=== PATIENT | male | born 1950 ===

== ENCOUNTER 2021-10-02 12:45 | Outpatient (CLI) | payer MEDICARE, BC, SELFPAY | END 2021-10-02 12:46 | disposition home or self-care (01) | LOC: LAB 12:48 | PROVIDERS: PCP Family Medicine; Visit Provider Orthopaedic Surgery | DX: Z01.818 Encounter for other preprocedural examination (principal) | CPT/HCPCS: 36415; 86850; 86900; 86901 ==

== ENCOUNTER 2021-10-05 15:34 | Inpatient (IN) | payer MEDICARE, BC, SELFPAY ==
[2021-10-04] VITALS (25 sets, daily range): BP systolic 90–148; BP diastolic 50–94; PULSE 53–104; RESP 14–18; TEMP 35.6–36.7; O2SAT 90–99; BMI 30.6
[2021-10-04] MEDS: MIDAZOLAM HCL 1 MG/ML inj IVP (10:38)
[2021-10-04] MEDS: ACETAMINOPHEN 500 MG TABLET 1000 MG PO ×3 (10:38→23:47)
[2021-10-04] MEDS: fentaNYL 100 MCG/2 ML inj IVP (10:38)
[2021-10-04] MEDS: OXYCODONE (CR) 10 MG TAB.ER.12H PO (10:38)
[2021-10-04] MEDS: CELECOXIB 200 MG CAPSULE PO ×2 (10:38→21:12)
--- NOTE | 2021-10-04 10:40 | CRLHL7_ITS ---
For Patients: As a result of the Cures Act, medical imaging exams and procedure reports are released immediately into your electronic medical record. You may view this report before your referring provider. If you have questions, please contact your health care provider. Indication: Hip replacement surgery Technique: AP hip fluoroscopic images. Fluoroscopy time 124.1 seconds. Findings/Impression: Hardware from a left total hip arthroplasty is in satisfactory position. Dictated by Gutierrez Bryant MD @ 10/04/2021 3:13:18 PM (Electronically Signed)
--- NOTE | 2021-10-04 10:40 | CRLHL7_ITS ---
For Patients: As a result of the Cures Act, medical imaging exams and procedure reports are released immediately into your electronic medical record. You may view this report before your referring provider. If you have questions, please contact your health care provider. Indication: Hip replacement surgery Technique: AP hip fluoroscopic images. Fluoroscopy time 124.1 seconds. Findings/Impression: Hardware from a right total hip arthroplasty is in satisfactory position. Dictated by Gutierrez Bryant MD @ 10/04/2021 3:12:41 PM (Electronically Signed)
[2021-10-04] MEDS: LACTATED RINGERS 1000 ML 1,000 ML 100 ML IV ×3 (11:00→15:20)
--- NOTE | 2021-10-04 11:30 | SUR.PREOP ---
TIME?OUT:?1120 PT/RN/MDA?VERIFICATION?OF?SURGICAL?SITE,?PROCEDURE,?AND?CONSENT OBTAINED?PRIOR?TO?INVASIVE?PROCEDURE.
[2021-10-04] MEDS: CEFAZOLIN 2 GM INJ IVP (12:00)
--- NOTE | 2021-10-04 12:08 | P.NB_ITS ---
Nerve Block Nerve Block Time Seen by Provider: 11:20 Date Seen: 10/04/21 Type of block requested by surgeon for post-operative analgesia: DECLAN/LFCN Side: left Time out performed: Yes Verification of patient name: Yes Verification of date of : Yes Site marking: site marked Name of person performing procedure: Sang Assistants, if any: Lienmbrogsugar Continuous monitoring Was continuous monitoring of O2 sat, B/P, compliance monitor, recorded every 15 minutes?: Yes Procedure Checklist: sterile prep, needles and gloves Ultrasound guided. Images saved: Yes Medications given in 5ml increments after negative aspiration: Marcaine %: 0.25 mL: 20 Needle gauge: 20 and Exparel mL: 10 Needle gauge: 20 Patient tolerated procedure well: Yes Additional comments: Needle noted adjacent to nerve Bilateral block. See other note for opposite side Block Charges Block Charge (with Pro Fee): Other Periph Nerve Block Use of Ultrasound Machine for Block: Yes- US Guidance/pain block
--- NOTE | 2021-10-04 12:10 | W.PM.NB ---
Nerve Block Nerve Block Time Seen by Provider: 11:20 Date Seen: 10/04/21 Type of block requested by surgeon for post-operative analgesia: DECLAN/LFCN Side: right Time out performed: Yes Verification of patient name: Yes Verification of date of : Yes Site marking: site marked Name of person performing procedure: Sang Assistants, if any: Lienmbrogsugar Continuous monitoring Was continuous monitoring of O2 sat, B/P, convenience recycle center tech, recorded every 15 minutes?: Yes Procedure Checklist: sterile prep, needles and gloves Ultrasound guided. Images saved: Yes Medications given in 5ml increments after negative aspiration: Marcaine %: 0.25 mL: 20 Needle gauge: 20 and Exparel Decadron (mg): 10 Precedex (mcg): 20 Patient tolerated procedure well: Yes Additional comments: Needle noted adjacent to nerve Bilateral block. See other note for opposite side Block Charges Block Charge (with Pro Fee): Other Periph Nerve Block Use of Ultrasound Machine for Block: Yes- US Guidance/pain block
--- NOTE | 2021-10-04 12:36 | SUR.OPER ---
PATIENT QUESTIONS ANSWERED SATISFACTORILY PREOPERATIVELY.? PATIENT BROUGHT TO OR #3 PER CART.? Patient positioned supine on OR #3 bed.?The perioperative?team supported arms bilaterally on arm boards.? Final approval of positioning by surgeon.?
--- NOTE | 2021-10-04 14:55 | SUR.OPER ---
RIGHT HIP IRRIGATED WITH 3000cc BAG NACL WITH PULSE RUBBER WASHER AT 13:20 LEFT HIP IRRIGATED WITH 3000cc BAG NACL WITH PULSE RUBBER WASHER AT 14:52
--- NOTE | 2021-10-04 15:01 | CRLHL7_ITS ---
For Patients: As a result of the Cures Act, medical imaging exams and procedure reports are released immediately into your electronic medical record. You may view this report before your referring provider. If you have questions, please contact your health care provider. Indication: Postop PAULA. Technique: Pelvis and right hip 2 views. Comparison: Same day intraoperative fluoroscopy. Findings: Postoperative changes of bilateral total hip arthroplasty with associated soft tissue gas. Hardware appears intact and well positioned. No acute fracture identified. Vascular calcifications. Surgical clips right groin. Impression: Intact right PAULA with expected immediate postoperative findings. Dictated by Abigail Valladares MD @ 10/04/2021 5:37:26 PM (Electronically Signed)
--- NOTE | 2021-10-04 15:01 | CRLHL7_ITS ---
For Patients: As a result of the Cures Act, medical imaging exams and procedure reports are released immediately into your electronic medical record. You may view this report before your referring provider. If you have questions, please contact your health care provider. Indication: Postop PAULA. Technique: Pelvis and left hip 2 views. Comparison: Same day intraoperative fluoroscopy. Findings: Postoperative changes of bilateral total hip arthroplasty with associated soft tissue gas. Hardware appears intact and well positioned. No acute fracture identified. Vascular calcifications. Surgical clips right groin. Impression: Intact left PAULA with expected immediate postoperative findings. Dictated by Abigail Valladares MD @ 10/04/2021 5:39:38 PM (Electronically Signed)
--- NOTE | 2021-10-04 15:06 | P.ORPRC_ITS ---
Procedure Note Date of procedure: 10/04/21 Procedure: SURGEON: Aaron Pierre MD CIRCLE SHEAR OPERATOR: Meme Murillo PA-C, ADAN Jaramillo PREOPERATIVE DIAGNOSIS: Bilateral hip osteoarthritis POSTOPERATIVE DIAGNOSIS: Bilateral hip osteoarthritis NAME OF OPERATION: Bilateral total hip arthroplasty IMPLANTS: Both hips 1. [employer] [place] # 54 sector ingrowth cup 2. 36 x 54 +4 neutral polyethylene 3. Actis # 7 standard collared ingrowth stem 4. 36 + 5 ceramic femoral head ANESTHESIA: General ESTIMATED BLOOD LOSS: 1100 cc COMPLICATIONS: None SPECIMENS: None DRAINS: None PREOPERATIVE ANTIBIOTICS: Ancef 2 grams INDICATIONS: The patient is a 71-year-old with a longstanding history of severe , unrelenting bilateral hip pain secondary to end-stage bilateral hip osteoarthritis. Despite appropriate nonoperative management, including activity modification, use of an assist device, anti-inflammatories, [id number] pain medication, physical therapy and injections, they continue to have pain and disability. Operative intervention was offered. The risks, benefits and expected outcomes were discussed in detail. These included but were not limited to: Infection, bleeding, injury to blood vessel or nerve, venous thromboembolism. All questions were answered to their satisfaction. Use of an assistant women's basketball coach was necessary throughout the case for patient positioning and safety, soft tissue retraction and closure. A modifier 22 is appropriate for this case. Given the severity of the arthritis, osteophytic spurring and tight soft tissues these factors extended the duration of the case to more than double what is typically required to complete a hip replacement PROCEDURE: The patient was placed supine on the [place] table. General anesthesia was administered. The assistant women's basketball coach made sure the patient was properly positioned. The right hip was prepped and draped in the usual sterile fashion. The image intensifier was brought in for a perfect AP pelvis and a perfect double tear drop AP view of each hip which were used for intraoperative templating with our fluoroscopic guide. An oblique incision was made 3 cm distal and 3 cm lateral to the anterior superior iliac spine. The assistant women's basketball coach retracted the soft tissues to protect them. Subcutaneous dissection was taken with electrocautery to the superficial fascia. The fascia was divided in line with the incision. Blunt dissection was carried medially to the tensor fascia nicho and sartorius interval. Deep dissection was carried with electrocautery. The circumflex vessels were cauterized and divided. The capsule was exposed and then divided in a T- fashion, tagged with #1 Ethibond sutures. Retractors were placed in the joint, held by the assistant women's basketball coach. The corkscrew was placed in the femoral head. The neck cut was made in the subcapital region. We made a second neck cut more distal. The napkin ring of bone was removed. The femoral head was removed intact. Acetabular retractors were placed, held by the assistant women's basketball coach. The labrum was sharply debrided. The capsule was released. The 43 mm reamer was used to the true medial wall. We then enlarged in 2 mm increments using the image intensifier for our reamer placement. We impacted the cup which had excellent purchase. We placed the hole eliminator and the polyethylene. Attention was then turned to the proximal femur. The limb was placed in 140 degrees of external rotation, maximum extension and adduction. A significant amount of time was spent releasing the capsule to allow us to deliver the femur into the wound and complete the femoral side safely. Retractors were held by the assistant women's basketball coach throughout the femoral preparation. The supervisor transferring and boxing and canal finder were used. Broaches were used to a stable size. The calcar reamer was used. Trial components were placed. The hip was reduced and was found to be stable with appropriate soft tissue tension. Length and offset had been nicely restored using the image intensifier and our fluoroscopic guide. Trial components were removed. The stem was impacted. We placed the femoral head. While testing fixation of the femoral head to the trunnion and stem in the canal, the # 5 stem came out of the canal. Therefore, we went up to a # 6 which did not seem like a stable fit. Finally, we settled on the # 7 broach. The # 7 standard collared Actis stem was impacted into the canal. This had excellent purchase. We placed a new 36 mm +5 ceramic femoral head. Again, the hip was reduced and was found to be stable with appropriate soft tissue tension. Length and offset had been nicely restored. The assistant women's basketball coach did a three minute dilute Betadine solution soak. The assistant women's basketball coach irrigated the wound with 3 liters of normal saline via pulse lavage. The assistant women's basketball coach repaired the anterior capsule with a #1 Vicryl and our previously placed Ethibond sutures. The assistant women's basketball coach closed the fascia over the tensor fascia nicho with a #1 PDO Stratafix, subcutaneous tissues with 2-0 Vicryl, skin with a running 3-0 Stratafix and glue. A dry dressing was applied by the assistant women's basketball coach. While 1 assistant women's basketball coach was closing the right hip, the left hip was prepped and draped in the usual sterile fashion. An oblique incision was made 3 cm distal and 3 cm lateral to the anterior superior iliac spine. The assistant women's basketball coach retracted the soft tissues to protect them. Subcutaneous dissection was taken with electrocautery to the superficial fascia. The fascia was divided in line with the incision. Blunt dissection was carried medially to the tensor fascia nicho and sartorius interval. Deep dissection was carried with electrocautery. The circumflex vessels were cauterized and divided. The capsule was exposed and then divided in a T- fashion, tagged with #1 Ethibond sutures. Retractors were placed in the joint, held by the assistant women's basketball coach. The corkscrew was placed in the femoral head. The neck cut was made in the subcapital region. We made a second neck cut more distal. The napkin ring of bone was removed. The femoral head was removed intact. Acetabular retractors were placed, held by the assistant women's basketball coach. The labrum was sharply debrided. The capsule was released. The 43 mm reamer was used to the true medial wall. We then enlarged in 2 mm increments using the image intensifier for our reamer placement. We impacted the cup which had excellent purchase. We placed the hole eliminator and the polyethylene. Attention was then turned to the proximal femur. The limb was placed in 140 degrees of external rotation, maximum extension and adduction. A significant amount of time was spent releasing the capsule to allow us to deliver the femur into the wound and complete the femoral side safely. Retractors were held by the assistant women's basketball coach throughout the femoral preparation. The supervisor transferring and boxing and canal finder were used. Broaches were used to a stable size. The calcar reamer was used. Trial components were placed. The hip was reduced and was found to be stable with appropriate soft tissue tension. Length and offset had been nicely restored using the image intensifier and our fluoroscopic guide. Trial components were removed. The stem was impacted. We placed the femoral head. Again, the hip was reduced and was found to be stable with appropriate soft tissue tension. Length and offset had been nicely restored. The assistant women's basketball coach did a three minute dilute Betadine solution soak. The assistant women's basketball coach irrigated the wound with 3 liters of normal saline via pulse lavage. The assistant women's basketball coach repaired the anterior capsule with a #1 Vicryl and our previously placed Ethibond sutures. The assistant women's basketball coach closed the fascia over the tensor fascia nicho with a #1 PDO Stratafix, subcutaneous tissues with 2-0 Vicryl, skin with a running 3-0 Stratafix and glue. A dry dressing was applied by the assistant women's basketball coach. Sponge and needle counts were correct x 2. The patient tolerated the procedure well; there were no apparent complications. They were awakened and extubated in the operating room, sent to the Post-Anesthesia Care Unit in satisfactory condition. PLAN: 1. The patient will be mobilized with physical therapy, weight-bearing as tolerates 2. Xarelto x 5 days then aspirin x 30 days will be used for DVT prophylaxis 3. The patient will be discharged once medically appropriate
--- NOTE | 2021-10-04 15:36 | W.ANESCHARGE ---
Anesthesia Charges Start Date/Time Anesthesia Start Date: 10/04/21 Anesthesia Start Time: 11:39 Stop Date/Time Anesthesia Stop Date: 10/04/21 Anesthesia Stop Time: 15:38 Summary Emergency: No Extremes of Age: Over 70-CPT 33788
--- NOTE | 2021-10-04 16:04 | W.ANESCHARGE ---
Anesthesia Charges Start Date/Time Anesthesia Start Date: 10/04/21 Anesthesia Start Time: 11:39 Stop Date/Time Anesthesia Stop Date: 10/04/21 Anesthesia Stop Time: 15:38 Summary Emergency: No Extremes of Age: Over 70-CPT 97116
--- NOTE | 2021-10-04 18:19 | P.IMCN_ITS ---
Date of Consult Patient: Anya Patient Consult date: 10/04/21 Requesting Physician: Orthopedics Primary Care Provider: Javi Wilcox MD Consult Narrative Reason for consult: Perioperative medical management support Narrative: Gutierrez Campa is a 71 year old man with severe, symptomatic bilateral coxarthrosis. He underwent an elective bilateral total hip arthroplasty per Dr. Camargo today. Estimated blood loss perioperatively 1100 mL. Pain is well managed at this juncture. Denies nausea or vomiting. Has not attempted to sit up yet. Systolic blood pressures have been running near 100 mmHg. Receiving crystalloid IV fluids. Denies chest heaviness, pressure, tightness, or pain. Denies syncope or near- syncope. Denies palpitations. Denies cough or shortness of breath. Denies diaphoresis. He tells me that he hopes he can walk with much less pain once he recovers from all of this. I asked him why he decided to do both hips at the same time. He replies that he wanted to only have 1 recovery. Review of Systems Status of ROS: Reports: 6 or more systems reviewed and unremarkable except as noted in History and below PFSH PFS Medical History (Updated 10/04/21 @ 18:37 by Burak Curry MD) A-fib Benign prostatic hyperplasia Hyperlipidemia Hypertension Surgical History (Updated 10/04/21 @ 18:30 by Burak Curry MD) History of coronary artery bypass graft (~06/17/16) Family History Mother Cancer of breast Stroke Father Cancer of lung Paternal Grandfather Myocardial infarction Social History Smoking Status: Never smoker How often do you have a drink containing alcohol: 4 or more times a week Alcohol type: beer, wine and hard liquor How many standard drinks containing alcohol do you have on a typical day: 1 or 2 How often do you have six or more drinks on one occasion: Never AUDIT-C Alcohol total score: 4 Non-prescribed substance use: denies use Caffeine: Yes (coffee, 2-3 cups/day; [email or web address] Coke) Meds Home Medications and Allergies Home Medications Medication Instructions Recorded Confirmed Type amlodipine 10 mg tablet 10 mg PO DAILY 10/03/21 10/04/21 History ascorbic acid (vitamin C) 1,000 mg 1 g PO DAILY 10/03/21 10/04/21 History tablet (Vitamin C) aspirin 81 mg tablet,delayed 81 mg PO DAILY 10/03/21 10/04/21 History release atorvastatin 80 mg tablet 80 mg PO HS 10/03/21 10/04/21 History cholecalciferol (vitamin D3) 25 25 mcg PO DAILY 10/03/21 10/04/21 History mcg (1,000 unit) tablet (Vitamin D3) coenzyme Q10 200 mg capsule 200 mg PO DAILY 10/03/21 10/04/21 History evolocumab 140 mg/mL subcutaneous 140 mg SUBCUT Q2W 10/03/21 10/04/21 History pen injector (Kaylee Tipton) finasteride 5 mg tablet 5 mg PO Q48H 10/03/21 10/03/21 History furosemide 20 mg tablet 40 mg PO DAILY 10/03/21 10/04/21 History wvtuttzfaet-bqcptgzcc-qbw C-Mn 500 1 cap PO DAILY 10/03/21 10/04/21 History mg-400 mg capsule lisinopril 40 mg tablet 40 mg PO DAILY 10/03/21 10/04/21 History metoprolol succinate 25 mg 25 mg PO DAILY 10/03/21 10/04/21 History tablet,extended release 24 hr multivitamin 1 tab PO DAILY 10/03/21 10/04/21 History nitroglycerin 0.4 mg sublingual 0.4 mg SUBLINGUAL Q5M PRN 10/03/21 10/04/21 History tablet vitamin E acetate 134 mg (200 134 mg PO DAILY 10/03/21 10/04/21 History unit) capsule Allergies Allergy/AdvReac Type Severity Reaction Status Date / Time No Known Allergies Allergy Unverified 10/04/21 10:35 Exam Narrative: Exam Narrative: No acute distress. Appears comfortable. Alert, oriented to self, place, time, situation. Friendly. Cooperative. Artic ulate. Gracious. Mood and affect are congruent. No focal motor neurologic deficits. No conjunctival injection. Pupils equally round reactive to light and accommodation. Extraocular muscles intact. Midline nasal septum. Normal nasal mucosa. Dentition in good repair. Oropharynx otherwise benign. Midline trachea. Normal thyroid. Neck is supple. No JVD, hepatojugular reflux, or carotid bruits. Lungs are clear to auscultation without wheezing, rhonchi, or rales. Chest wall excursions are full. Heart tones with regular rhythm, normal S1-S2, without murmur, gallop, or rub. Abdomen with active bowel sounds, soft, nontender. No organomegaly or masses. Palpable pulses in upper and lower extremities. Const: Vital Signs, click to edit/add: Vital Signs - 24 hr 10/04/21 11:20 10/04/21 11:25 10/04/21 11:30 Temperature 98 F Pulse Rate 77 77 77 Pulse Rate [Bilate ral Dorsalis Pedis ] Respiratory Rate 16 16 16 Blood Pressure 139/76 139/76 134/73 Blood Pressure [Ri ght Arm] Pulse Oximetry 98 98 98 10/04/21 15:35 10/04/21 15:40 10/04/21 15:45 Temperature 97.1 F L Pulse Rate 74 70 104 H Pulse Rate [Bilate ral Dorsalis Pedis ] Respiratory Rate 16 18 16 Blood Pressure 102/57 L 90/63 104/57 L Blood Pressure [Ri ght Arm] Pulse Oximetry 97 97 97 10/04/21 15:50 10/04/21 15:55 10/04/21 16:00 Temperature 96.5 F L Pulse Rate 67 64 64 Pulse Rate [Bilate ral Dorsalis Pedis ] Respiratory Rate 16 16 17 Blood Pressure 109/56 L 107/67 112/67 Blood Pressure [Ri ght Arm] Pulse Oximetry 98 96 94 10/04/21 16:05 10/04/21 16:10 10/04/21 16:15 Temperature Pulse Rate 62 60 62 Pulse Rate [Bilate ral Dorsalis Pedis ] Respiratory Rate 16 16 14 Blood Pressure 117/66 111/53 L 97/80 Blood Pressure [Ri ght Arm] Pulse Oximetry 96 97 98 10/04/21 16:20 10/04/21 16:45 10/04/21 16:58 Temperature 96.5 F L 96.3 F L 96.1 F L Pulse Rate 61 60 Pulse Rate [Bilate ral Dorsalis Pedis ] 62 Respiratory Rate 16 18 18 Blood Pressure 111/94 H Blood Pressure [Ri ght Arm] 112/60 98/55 L Pulse Oximetry 99 95 Labs Labs: I reviewed preoperative laboratory studies. These studies were obtained on 09/13/2021. Sodium 140, potassium 4, chloride 105, CO2 26, anion gap 9, glucose 107, calcium 9.6, BUN 17, creatinine 1. EGFR 80. White blood cell count 5.6, hemoglobin 14.5, hematocrit 45.2, platelet count 258. Urinalysis negative. Assessment and Plan Assessment and plan (1) Status post total hip replacement, bilateral: Status: Acute Assessment and Plan: 1. Will monitor for postoperative anemia and consider transfusion as warranted. (2) Bilateral hip joint arthritis: Status: Acute (3) History of atrial fibrillation: Status: Acute (4) History of coronary artery bypass graft: Problem comment: quadrupal Status: Acute (5) Hypertension: Status: Acute (6) Hyperlipidemia: Status: Acute (7) Benign prostatic hyperplasia: Status: Acute Assessment and Plan: 1. Continue with his finasteride. 2. PMI full with about the possibility of postoperative urinary retention. Plan 1. Reviewed with patient and his significant other Hannah. Answered their questions. 2. Will continue with his beta-ghada metoprolol for now. Hold other antihypertensive medications for now. 3. Continue with his statin for now. Will hold his evolocumab for now. 4. Will follow with Orthopedic surgery why he is in hospital. 5. Agree with VTE prophylaxis while in hospital and be on. 6. Agree with perioperative antibiotic therapy as ordered. 7. Will honor his request to have sharing as his power of criminal defense attorney for health should that be required. Will also honor his request for full resuscitation in the event of cardiopulmonary demise. 8. Will be mindful the possibility of perioperative atrial fibrillation.
[2021-10-04] MEDS: FINASTERIDE 5 MG TABLET PO (19:36)
[2021-10-04] MEDS: CEFAZOLIN 2 GM in 0.9 % SODIUM CHLORIDE Mini-bag 100 ML IVPB (19:37)
[2021-10-04] MEDS: ATORVASTATIN CALCIUM 40 MG TABLET 80 MG PO (21:12)
[2021-10-04] MEDS: SENNOSIDES 1 TAB TABLET 2 TAB PO (21:13)
--- NOTE | 2021-10-04 22:58 | PC.NURSE ---
Shift Note: Pt arrived from PACU at 1629. Friendly and cooperative, alert, oriented, and able to verbalize needs. Systolic BP's 90's-low 100's and HR= 60-70's. Pt asymptomatic until attempting to dangle at edge of bed. Despite slow position change he did experience a brief wave of lightheadedness and nausea that dissipated after about 1 minute. Pt did attempt to stand at bedside with assist x2 but LE's were too numb so he was repositioned in bed and is successfully using the urinal to void. Rates pain 1-2/10, he has not required any PRN pain control medication. Dressings to left and right hips C,D,&I with active ice in place. Advanced to regular diet without difficulty. Pt utilizing IS independently.
[2021-10-05] VITALS (8 sets, daily range): BP systolic 102–121; BP diastolic 57–89; PULSE 72–90; RESP 16–20; TEMP 36.6–37.4; O2SAT 92–97
[2021-10-05] MEDS: CEFAZOLIN 2 GM in 0.9 % SODIUM CHLORIDE Mini-bag 100 ML IVPB ×2 (01:50→10:14)
[2021-10-05] MEDS: LACTATED RINGERS 1000 ML 1,000 ML 75 ML IV (02:35)
[2021-10-05] MEDS: OXYCODONE 5 MG TABLET PO ×2 (04:36→09:00)
--- NOTE | 2021-10-05 05:38 | PC.NURSE ---
[id number] Pt rested during night, pain rated 0-1/10, oxy adminsitered x1 to stay ahead of the pain. Pt able to stand next to bedside, Left side stronger than right, stood briefly then returned to bed. Dressings to bilat hip C/D/I, active ice to site throughout night. Pt denies sob, N/V.
[2021-10-05] MEDS: ACETAMINOPHEN 500 MG TABLET 1000 MG PO ×4 (06:09→23:49)
[2021-10-05 06:49] LABS: Hematocrit 31.8 % (37.0-53.0); Hemoglobin* 10.5 gm/dL (13.5-17.5); Immature Granulocytes Abs Auto 0.04 K/uL (0.00-0.30); Lymphocytes Percent Auto 9.7 % (20-44); Mean Corpuscular HGB Conc 33 gm/dL (32-36); Mean Corpuscular Hemoglobin 31 pg (26-34); Mean Corpuscular Volume 93 fL (80-100); Monocytes Percent Auto 10.7 % (0.0-11.0); Platelet Count* 194 K/uL (140-440); RDW Coefficient of Variation % 13.1 % (11.5-15.5); Red Blood Count 3.42 m/uL (4.30-5.90); White Blood Count* 6.81 K/uL (4.50-11.00)
[2021-10-05 06:55] LABS: Slide Review Reflex No
[2021-10-05 07:04] LABS: Potassium* 4.4 mmol/L (3.6-5.1); Sodium* 136 mmol/L (135-149)
[2021-10-05 07:07] LABS: Blood Urea Nitrogen* 22 mg/dL (7-30); Creatinine* 0.8 mg/dL (0.5-1.5); Est. Creatinine Clearance* 58.94; Estimated Glomerular Filt Rate 95 ml/min
--- NOTE | 2021-10-05 08:22 | PM.ORPN ---
Subjective Subjective Time Seen by Provider: 07:15 Date Seen: 10/05/21 Principal diagnosis: Status post bilateral total hip arthroplasty Interval history: Patient is comfortable at rest this morning. Ortho Exam Narrative Exam Narrative: Alert and oriented x3. Patient is in no acute distress. Converses without labored breathing. Hearing is grossly intact. Gutierrez has not ambulated since his surgery. He states he has stood up next to his bed. Right dorsalis pedis is faint. It took some time to palpate his dorsalis pedis pulse. Once I took his Lauro stocking off I was able to palpate it. Left lower extremity dorsalis pedis and posterior tibialis pulse palpable. No foot drop. Able to dorsiflex and plantar flex both ankles and great toes. Dressings are clean, dry, and intact. Very mild soft tissue edema about both hips. Const Vital Signs, click to edit/add: Vital Signs - 24 hr 10/04/21 11:20 10/04/21 11:25 10/04/21 11:30 Temperature 98 F Pulse Rate 77 77 77 Pulse Rate [Bilateral Dorsalis Pedis] Respiratory Rate 16 16 16 Blood Pressure 139/76 139/76 134/73 Blood Pressure [Right Arm] Pulse Oximetry 98 98 98 10/04/21 15:35 10/04/21 15:40 10/04/21 15:45 Temperature 97.1 F L Pulse Rate 74 70 104 H Pulse Rate [Bilateral Dorsalis Pedis] Respiratory Rate 16 18 16 Blood Pressure 102/57 L 90/63 104/57 L Blood Pressure [Right Arm] Pulse Oximetry 97 97 97 10/04/21 15:50 10/04/21 15:55 10/04/21 16:00 Temperature 96.5 F L Pulse Rate 67 64 64 Pulse Rate [Bilateral Dorsalis Pedis] Respiratory Rate 16 16 17 Blood Pressure 109/56 L 107/67 112/67 Blood Pressure [Right Arm] Pulse Oximetry 98 96 94 10/04/21 16:05 10/04/21 16:10 10/04/21 16:15 Temperature Pulse Rate 62 60 62 Pulse Rate [Bilateral Dorsalis Pedis] Respiratory Rate 16 16 14 Blood Pressure 117/66 111/53 L 97/80 Blood Pressure [Right Arm] Pulse Oximetry 96 97 98 10/04/21 16:20 10/04/21 16:45 10/04/21 16:58 Temperature 96.5 F L 96.3 F L 96.1 F L Pulse Rate 61 60 Pulse Rate [Bilateral Dorsalis Pedis] 62 Respiratory Rate 16 18 18 Blood Pressure 111/94 H Blood Pressure [Right Arm] 112/60 98/55 L Pulse Oximetry 99 95 10/04/21 17:00 10/04/21 17:15 10/04/21 17:30 Temperature 96.3 F L 96.6 F L Pulse Rate Pulse Rate [Bilateral Dorsalis Pedis] 63 53 L 67 Respiratory Rate 18 18 18 Blood Pressure Blood Pressure [Right Arm] 100/63 107/53 L 94/56 L Pulse Oximetry 90 92 92 10/04/21 18:00 10/04/21 18:30 10/04/21 19:30 Temperature 96.9 F L 97.6 F Pulse Rate Pulse Rate [Bilateral Dorsalis Pedis] 66 67 76 Respiratory Rate 18 18 18 Blood Pressure Blood Pressure [Right Arm] 101/71 116/67 100/61 Pulse Oximetry 95 94 95 10/04/21 20:30 10/04/21 21:26 10/04/21 22:30 Temperature 97.6 F 97.7 F Pulse Rate Pulse Rate [Bilateral Dorsalis Pedis] 77 74 74 Respiratory Rate 18 18 18 Blood Pressure Blood Pressure [Right Arm] 106/50 L 102/56 L 107/62 Pulse Oximetry 94 95 97 10/04/21 23:45 10/05/21 04:00 Temperature 98.0 F 97.8 F Pulse Rate Pulse Rate [Bilateral Dorsalis Pedis] 76 76 Respiratory Rate 18 18 Blood Pressure Blood Pressure [Right Arm] 116/73 110/71 Pulse Oximetry 97 97 Assessment and Plan Assessment and plan (1) Status post total hip replacement, bilateral: Status: Acute Assessment and Plan: Plan for discharge is today to home if they meet discharge criteria. He has not ambulated yet since surgery, therefore, will see how physical therapy goes today and if he is able to go home. Hemoglobin is appropriate at 10.5 this morning which is quite good since he had both hips replaced yesterday. Vitals are stable this morning. DVT prophylaxis includes Xarelto 10 mg daily for total of 5 days, then aspirin 81 mg twice daily for 30 days, Lauro stockings x1 month may remove for 1 hr per day, frequent ambulation Remove dressing 1 week. Observe wound and phone Orthopedics with any questions or concerns Use Ice on operative hip unrestricted. Return to clinic in 1 week with PA for a wound check Return to clinic in [address] Pierre Minimize narcotic use. Wean off and discontinue soon as possible. Activities as tolerated. No strenuous activity. Attend outpt PT (2) Bilateral hip joint arthritis: Status: Acute (3) History of atrial fibrillation: Status: Acute (4) History of coronary artery bypass graft: Problem details: quadrupal Status: Acute (5) Hypertension: Status: Acute (6) Hyperlipidemia: Status: Acute (7) Benign prostatic hyperplasia: Status: Acute
[2021-10-05] MEDS: METOPROLOL SUCCINATE (XL) 25 MG TAB PO (10:10)
[2021-10-05] MEDS: FUROSEMIDE 20 MG TABLET 40 MG PO (10:11)
[2021-10-05] MEDS: CELECOXIB 200 MG CAPSULE PO ×2 (10:11→20:41)
[2021-10-05] MEDS: SENNOSIDES 1 TAB TABLET 2 TAB PO ×2 (10:13→10:18)
[2021-10-05] MEDS: RIVAROXABAN 10 MG TABLET PO (10:18)
--- NOTE | 2021-10-05 10:27 | PM.IMPN1 ---
Progress Note: A&P Assessment and plan (1) Status post total hip replacement, bilateral: Status: Acute Assessment and Plan: Doing well but I suspect he will require an extra night prior to discharge. Will continue work with Physical and Occupational therapy. (2) Bilateral hip joint arthritis: Status: Acute Assessment and Plan: Status post joint replacement. (3) History of atrial fibrillation: Status: Acute Assessment and Plan: Continue outpatient regiment. (4) History of coronary artery bypass graft: Problem details: quadrupal Status: Acute Assessment and Plan: No signs of acute cardiovascular issues. (5) Hypertension: Status: Acute Assessment and Plan: Continue outpatient management. (6) Hyperlipidemia: Status: Acute Assessment and Plan: Continue outpatient management. (7) Benign prostatic hyperplasia: Status: Acute Subjective Time Seen by Provider: 10:28 Date Seen: 10/05/21 Interval history: Patient is resting comfortably this morning and motivated to get to work with Physical and Occupational therapy. He underwent successful bilateral hip arthroplasty yesterday and is feeling well. He does realize that the bilateral hip does decrease the chance of his being discharged home today. PT and OT have yet to assess. No other concerns have been noted. Exam Narrative: Exam Narrative: EXAM GENERAL: Patient appears comfortable and well. EYES: No scleral icterus. LYMPH: No supraclavicular or cervical lymphadenopathy. SKIN: Visible skin seen during exam normal or with benign process only. EXT: No dependent lower extremity pedal edema. Both hips are sterilely dressed. HEART: Regular rate and rhythm with no murmurs, rubs, or gallops. LUNGS: Clear to auscultation bilaterally with no crackles or wheezes. ABD: Soft, non tender, non distended. PSYCH: Good eye contact, speech is not pressured. Const: Vital Signs, click to edit/add: Vital Signs - 24 hr 10/04/21 11:20 10/04/21 11:25 10/04/21 11:30 Temperature 98 F Pulse Rate 77 77 77 Pulse Rate [Bilate ral Dorsalis Pedis ] Respiratory Rate 16 16 16 Blood Pressure 139/76 139/76 134/73 Blood Pressure [Ri ght Arm] Pulse Oximetry 98 98 98 10/04/21 15:35 10/04/21 15:40 10/04/21 15:45 Temperature 97.1 F L Pulse Rate 74 70 104 H Pulse Rate [Bilate ral Dorsalis Pedis ] Respiratory Rate 16 18 16 Blood Pressure 102/57 L 90/63 104/57 L Blood Pressure [Ri ght Arm] Pulse Oximetry 97 97 97 10/04/21 15:50 10/04/21 15:55 10/04/21 16:00 Temperature 96.5 F L Pulse Rate 67 64 64 Pulse Rate [Bilate ral Dorsalis Pedis ] Respiratory Rate 16 16 17 Blood Pressure 109/56 L 107/67 112/67 Blood Pressure [Ri ght Arm] Pulse Oximetry 98 96 94 10/04/21 16:05 10/04/21 16:10 10/04/21 16:15 Temperature Pulse Rate 62 60 62 Pulse Rate [Bilate ral Dorsalis Pedis ] Respiratory Rate 16 16 14 Blood Pressure 117/66 111/53 L 97/80 Blood Pressure [Ri ght Arm] Pulse Oximetry 96 97 98 10/04/21 16:20 10/04/21 16:45 10/04/21 16:58 Temperature 96.5 F L 96.3 F L 96.1 F L Pulse Rate 61 60 Pulse Rate [Bilate ral Dorsalis Pedis ] 62 Respiratory Rate 16 18 18 Blood Pressure 111/94 H Blood Pressure [Ri ght Arm] 112/60 98/55 L Pulse Oximetry 99 95 10/04/21 17:00 10/04/21 17:15 10/04/21 17:30 Temperature 96.3 F L 96.6 F L Pulse Rate Pulse Rate [Bilate ral Dorsalis Pedis ] 63 53 L 67 Respiratory Rate 18 18 18 Blood Pressure Blood Pressure [Ri ght Arm] 100/63 107/53 L 94/56 L Pulse Oximetry 90 92 92 10/04/21 18:00 10/04/21 18:30 10/04/21 19:30 Temperature 96.9 F L 97.6 F Pulse Rate Pulse Rate [Bilate ral Dorsalis Pedis ] 66 67 76 Respiratory Rate 18 18 18 Blood Pressure Blood Pressure [Ri ght Arm] 101/71 116/67 100/61 Pulse Oximetry 95 94 95 10/04/21 20:30 10/04/21 21:26 10/04/21 22:30 Temperature 97.6 F 97.7 F Pulse Rate Pulse Rate [Bilate ral Dorsalis Pedis ] 77 74 74 Respiratory Rate 18 18 18 Blood Pressure Blood Pressure [Ri ght Arm] 106/50 L 102/56 L 107/62 Pulse Oximetry 94 95 97 10/04/21 23:45 10/05/21 04:00 Temperature 98.0 F 97.8 F Pulse Rate Pulse Rate [Bilate ral Dorsalis Pedis ] 76 76 Respiratory Rate 18 18 Blood Pressure Blood Pressure [Ri ght Arm] 116/73 110/71 Pulse Oximetry 97 97 Labs Labs: Laboratory Results - last 24 hr 10/05/21 10/05/21 06:20 06:20 WBC 6.81 RBC 3.42 L Hgb 10.5 L Hct 31.8 L MCV 93 MCH 31 MCHC 33 RDW Coeff of Juan Pablo 13.1 Plt Count 194 Neut % (Auto) 79.0 H Lymph % (Auto) 9.7 L Edmunds % (Auto) 10.7 Eos % (Auto) 0.0 Baso % (Auto) 0.0 Neut # (Auto) 5.40 Lymph # (Auto) 0.70 L Edmunds # (Auto) 0.70 Eos # (Auto) 0.00 Baso # (Auto) 0.00 Abs Immat Gran (auto) 0.04 Sodium 136 Potassium 4.4 BUN 22 Creatinine 0.8 Estimated Creat Clear 58.94 Estimated GFR 95
--- NOTE | 2021-10-05 19:28 | PC.NURSE ---
[id number] Pt moving from bed to chair and ambulating in the levine. Right leg weaker than left and at times kj. Using walker, gait belt, and 2 person assist. Pt continues to deny pain this shift. dressing CDI Stable and resting comfortably.
[2021-10-05] MEDS: ATORVASTATIN CALCIUM 40 MG TABLET 80 MG PO (20:41)
[2021-10-06 02:43] VITALS: BP 126/62; PULSE 94; RESP 18; TEMP 36.9; O2SAT 94
[2021-10-06] MEDS: ACETAMINOPHEN 500 MG TABLET 1000 MG PO (06:15)
--- NOTE | 2021-10-06 06:30 | PC.NURSE ---
Shift Note -: Pt pleasant and cooperative, VSS, low grade temp at beginning of shift, resolved by 2300 vitals check, see eMAR for medication administration. Pt up to BR with SBA, no issues with knees buckling noted. Pt consistently rates pain at 0/10, education provided on pain control when block wears off.
[2021-10-06 07:44] LABS: Basophils Absolute Auto 0.02 K/uL (0.00-0.30); Basophils Percent Auto 0.3 % (0.0-3.0); Eosinophils Absolute Auto 0.08 K/uL (0.00-0.50); Hematocrit 28.8 % (37.0-53.0); Hemoglobin* 9.6 gm/dL (13.5-17.5); Immature Granulocytes Abs Auto 0.02 K/uL (0.00-0.30); Lymphocytes Percent Auto 11.7 % (20-44); Mean Corpuscular HGB Conc 33 gm/dL (32-36); Mean Corpuscular Hemoglobin 31 pg (26-34); Mean Corpuscular Volume 93 fL (80-100); Monocytes Percent Auto 8.4 % (0.0-11.0); Neutrophils Percent Auto 78.3 % (42.0-72.0); Platelet Count* 179 K/uL (140-440); RDW Coefficient of Variation % 13.2 % (11.5-15.5); Red Blood Count 3.11 m/uL (4.30-5.90); White Blood Count* 7.87 K/uL (4.50-11.00)
--- NOTE | 2021-10-06 07:44 | P.IMCN_ITS ---
Date of Consult Primary Care Provider: Javi Wilcox MD Consult Narrative Narrative: Daily Progress Note - Hospital Medicine Post-Op Day #: 2 CC: Status post bilateral total hip arthroplasties Review of Systems: Cardiac: No new chest pain/pressure/palpitations. Respiratory: no new dyspnea. GI: No abdominal bloating Joint pain/stiffness as expected, right knee buckling has improved Objective: Vitals Reviewed/as above. No Falls. Lungs: Clear. Cardiac: S1S2. Musculoskeletal: Surgical dressing clean/dry. Neurovascularly intact. No obvious hematoma. Distal pulses intact. Feet are warm pink. Dorsiflexion and plantar flexion intact. Total time is 25 minutes with greater than 50% spent in counseling and coordination of care. [facility] Medical History (Updated 10/04/21 @ 18:37 by Burak Curry MD) A-fib Benign prostatic hyperplasia Hyperlipidemia Hypertension Surgical History (Updated 10/04/21 @ 18:30 by Burak Curry MD) History of coronary artery bypass graft (~06/17/16) Family History Mother Cancer of breast Stroke Father Cancer of lung Paternal Grandfather Myocardial infarction Social History Smoking Status: Never smoker How often do you have a drink containing alcohol: 4 or more times a week Alcohol type: beer, wine and hard liquor How many standard drinks containing alcohol do you have on a typical day: 1 or 2 How often do you have six or more drinks on one occasion: Never AUDIT-C Alcohol total score: 4 Non-prescribed substance use: denies use Caffeine: Yes (coffee, 2-3 cups/day; [employer] Coke) Meds Home Medications and Allergies Home Medications Medication Instructions Recorded Confirmed Type amlodipine 10 mg tablet 10 mg PO DAILY 10/03/21 10/04/21 History ascorbic acid (vitamin C) 1,000 mg 1 g PO DAILY 10/03/21 10/04/21 History tablet (Vitamin C) aspirin 81 mg tablet,delayed 81 mg PO DAILY 10/03/21 10/04/21 History release atorvastatin 80 mg tablet 80 mg PO HS 10/03/21 10/04/21 History cholecalciferol (vitamin D3) 25 25 mcg PO DAILY 10/03/21 10/04/21 History mcg (1,000 unit) tablet (Vitamin D3) coenzyme Q10 200 mg capsule 200 mg PO DAILY 10/03/21 10/04/21 History evolocumab 140 mg/mL subcutaneous 140 mg SUBCUT Q2W 10/03/21 10/04/21 History pen injector (Kaylee Tipton) finasteride 5 mg tablet 5 mg PO Q48H 10/03/21 10/03/21 History furosemide 20 mg tablet 40 mg PO DAILY 10/03/21 10/04/21 History wfskmxawnab-rvlgeufak-tub C-Mn 500 1 cap PO DAILY 10/03/21 10/04/21 History mg-400 mg capsule lisinopril 40 mg tablet 40 mg PO DAILY 10/03/21 10/04/21 History metoprolol succinate 25 mg 25 mg PO DAILY 10/03/21 10/04/21 History tablet,extended release 24 hr multivitamin 1 tab PO DAILY 10/03/21 10/04/21 History nitroglycerin 0.4 mg sublingual 0.4 mg SUBLINGUAL Q5M PRN 10/03/21 10/04/21 History tablet vitamin E acetate 134 mg (200 134 mg PO DAILY 10/03/21 10/04/21 History unit) capsule Allergies Allergy/AdvReac Type Severity Reaction Status Date / Time No Known Allergies Allergy Unverified 10/04/21 10:35 Exam Const: Vital Signs, click to edit/add: Vital Signs - 24 hr 10/05/21 08:00 10/05/21 12:00 10/05/21 16:00 Temperature 99.1 F 98.8 F 99.1 F Pulse Rate [Left P ulse Oximeter] 72 81 81 Respiratory Rate 16 20 20 Blood Pressure [Le ft Arm] 111/78 102/57 L Blood Pressure [Ri ght Arm] 121/89 Pulse Oximetry 95 96 96 10/05/21 19:48 10/05/21 19:56 10/05/21 20:44 Temperature 99.3 F 99.3 F 99.3 F Pulse Rate [Left P ulse Oximeter] 87 Respiratory Rate 16 Blood Pressure [Le ft Arm] 116/65 Blood Pressure [Ri ght Arm] Pulse Oximetry 92 10/05/21 23:48 10/06/21 02:43 Temperature 98.6 F 98.4 F Pulse Rate [Left P ulse Oximeter] 90 94 Respiratory Rate 16 18 Blood Pressure [Le ft Arm] 114/63 126/62 Blood Pressure [Ri ght Arm] Pulse Oximetry 92 94 Assessment and Plan Assessment and plan (1) Status post total hip replacement, bilateral: Status: Acute Assessment and Plan: Assuming stairs go well andPT and OT sign off patient will discharge today. (2) History of coronary artery bypass graft: Problem comment: quadrupal Status: Acute Assessment and Plan: No chest pain. Vital stable. (3) Hypertension: Status: Acute Assessment and Plan: Well managed. Restarted all home meds. (4) Hyperlipidemia: Status: Acute (5) History of atrial fibrillation: Status: Acute Assessment and Plan: Was not on chronic anticoagulation prior to surgery. Will complete 5 days of Xarelto and then b.i.d. aspirin. Will return to daily aspirin at 1 month postop. (6) Benign prostatic hyperplasia: Status: Acute
[2021-10-06 07:50] LABS: Slide Review Reflex No
[2021-10-06 07:52] LABS: Potassium* 3.6 mmol/L (3.6-5.1); Sodium* 136 mmol/L (135-149)
[2021-10-06 07:55] LABS: Creatinine* 0.9 mg/dL (0.5-1.5); Est. Creatinine Clearance* 58.94; Estimated Glomerular Filt Rate 91 ml/min
[2021-10-06 07:56] LABS: Blood Urea Nitrogen* 21 mg/dL (7-30)
[2021-10-06 08:00] VITALS: BP 145/92; PULSE 82; RESP 18; TEMP 37.4; O2SAT 96
--- NOTE | 2021-10-06 08:23 | PM.ORPN ---
Subjective Subjective Time Seen by Provider: 08:00 Date Seen: 10/06/21 Principal diagnosis: Status post bilateral total hip arthroplasty Interval history: Gutierrez is comfortable this morning. He has minimal pain. He is looking forward to going home today. He experience leg buckling yesterday. He states this is resolved. Is not yet stairs with physical therapy. If he is able to do stairs today, he will discharge to home.. Ortho Exam Narrative Exam Narrative: Alert and oriented x3. Patient is in no acute distress. Converses without labored breathing. Hearing is grossly intact. Ambulates with a walker. Dressings are clean, dry, and intact. Soft tissue edema is present about both hips. Bilateral calves are soft and nontender right dorsalis pedis pulse is difficult to find again today. That area is marked with a pen once it was palpable. Both feet are warm. Capillary refill less than 2 seconds. Able to dorsiflex and plantar flex both ankles and great toes against resistance. CMS intact bilateral lower extremities. Const Vital Signs, click to edit/add: Vital Signs - 24 hr 10/05/21 12:00 10/05/21 16:00 10/05/21 19:48 Temperature 98.8 F 99.1 F 99.3 F Pulse Rate [Left Pulse Oximeter] 81 81 87 Respiratory Rate 20 20 16 Blood Pressure [Left Arm] 111/78 102/57 L 116/65 Pulse Oximetry 96 96 92 10/05/21 19:56 10/05/21 20:44 10/05/21 23:48 Temperature 99.3 F 99.3 F 98.6 F Pulse Rate [Left Pulse Oximeter] 90 Respiratory Rate 16 Blood Pressure [Left Arm] 114/63 Pulse Oximetry 92 10/06/21 02:43 Temperature 98.4 F Pulse Rate [Left Pulse Oximeter] 94 Respiratory Rate 18 Blood Pressure [Left Arm] 126/62 Pulse Oximetry 94 Documenting provider has reviewed patient's vital signs: yes Assessment and Plan Assessment and plan (1) Status post total hip replacement, bilateral: Problem details: Plan for discharge is today to home if they meet discharge criteria. DVT prophylaxis includes Xarelto 10 mg daily for total of 5 days, then aspirin 81 mg twice daily for 30 days, Lauro stockings x1 month may remove for 1 hr per day, frequent ambulation Remove dressing 1 week. Observe wound and phone Orthopedics with any questions or concerns Use Ice on operative hip unrestricted. Return to clinic in 1 week with PA for a wound check Return to clinic in [address] Pierre Minimize narcotic use. Wean off and discontinue soon as possible. Activities as tolerated. No strenuous activity. Attend outpt PT Status: Acute (2) History of coronary artery bypass graft: Problem details: quadrupal Status: Acute (3) Hypertension: Status: Acute (4) Hyperlipidemia: Status: Acute (5) History of atrial fibrillation: Status: Acute (6) Benign prostatic hyperplasia: Status: Acute
[2021-10-06] MEDS: SENNOSIDES 1 TAB TABLET 2 TAB PO (09:32)
[2021-10-06] MEDS: COENZYME Q10 100 MG CAPSULE 200 MG PO (09:32)
[2021-10-06] MEDS: RIVAROXABAN 10 MG TABLET PO (09:33)
[2021-10-06] MEDS: AMLODIPINE 10 MG TABLET PO (09:34)
[2021-10-06] MEDS: CELECOXIB 200 MG CAPSULE PO (09:34)
[2021-10-06] MEDS: MULTIVITAMIN/MINERALS 1 TABLET 1 TAB PO (09:34)
[2021-10-06] MEDS: METOPROLOL SUCCINATE (XL) 25 MG TAB PO (09:35)
[2021-10-06] MEDS: FUROSEMIDE 20 MG TABLET 40 MG PO (09:35)
[2021-10-06] MEDS: VITAMIN E 400 UNIT CAPSULE PO (09:37)
--- NOTE | 2021-10-06 16:55 | PC.NURSE ---
shift note: vss stable.pt had slight temp this a.m of 99.5. pt encouraged to use IS more frequently. LS clr. Pt up 1/walker with steady gait. IV dc'd intact. Reviewed dc instrucitons with pt and his sig other. copies of dc and belongings sent with pt at dc. 4 ice paks sent with pt. Pt rated bilat hip pain 2/10 upon dc. PP+ bilat. Reviewed dvt s/s with pt prior to dc.
== END 2021-10-06 11:35 | disposition home or self-care (01) | DRG 462 ==
LOC: OR 15:35 → MEDSURG 15:35
PROVIDERS: Admitting Provider Orthopaedic Surgery; PCP Family Medicine; Visit Provider Orthopaedic Surgery
PROC: 0SR90JZ Replacement of Right Hip Joint with Synthetic Substitute, Open Approach (ICD-10-PCS; CPT 27130; principal; 2021-10-04 11:45)
DX: M16.0 Bilateral primary osteoarthritis of hip (principal); I48.91 Unspecified atrial fibrillation; I10 Essential (primary) hypertension; N40.0 Benign prostatic hyperplasia without lower urinary tract symptoms; E78.5 Hyperlipidemia, unspecified; Z95.1 Presence of aortocoronary bypass graft
CPT/HCPCS: 01214; 36415; 64450; 73501; 76000; 76942; 82565; 84132; 84295; 84520; 85025; 97110; 97116; 97161; 97165; 97530; 97535; 99100; A9153; A9270; C1776; C9290; J0330; J0690; J1170; J2250; J2704; J2710; J3010; J3475; J3490; J7120

== ENCOUNTER 2022-03-07 14:00 | Outpatient (RCR) | payer MEDICARE, BC, SELFPAY ==
--- NOTE | 2021-09-27 15:48 | PT.OPEX ---
PT [facility] Eval PT [facility] Outpatient Eval Start: 09/27/21 08:56 Freq: Status: Active Protocol: Document 09/27/21 12:58 MBB (Rec: 09/27/21 15:47 MBB [id number]) E-Signed By Teresita Mcdonald DPT Physical Therapy Outpatient Evaluation Insurance Information Recert Due Date 12/20/21 Insurance Name Medicare B Medical Diagnosis bilateral Hip OA Treating Diagnosis bilateral hip pain; impaired hip ROM; hip weakness Referring MD Aaron Pierre MD Subjective Subjective Chronic progressive hip limitations. Flared hips up in the fall and pain has not calmed. Both hips are severely arthritic and only wants to go through recovery once so opting for bilateral PAULA if all goes well in surgery. Objective Range of Motion Hip IR R: lacking 14? from neutral L:lacking 16? from neutral ER R:25? L:23? Flex R: 20? from 90? L:40? from 90? Strength Hip abd 4/5, poor activation in standing Balance & Gait Walks with wide ALLEN, slow, short step lengths, Posture Unable to extend hips to neutral Assessment Assessment/Impression 71 yo with severe bilateral OA with planned PAULA next week. Exam revealed severe limitations in ROM all directions, impaired gait and weakness. He benefits from skilled PT for home set up, planning for post-op recovery and introduction to exercises to improve ROM and strength prior to surgery. Pt was receptive to all instructions and education and was able to perform exercises with some modifications due to ROM limitations. Primary Functional Limitations walking; transfers; sleeping on back Plan of Care Rehabilitation Potential Good Physical Therapy Goals By 10/04/21 patient will... 1) Demonstrate all exercises with modifications as needed ( MET) 2) Ambulate safely with LRAD and ascend/descend steps with assistance. By 12/20/21 patient will... 1) Walk with normal gait mechanics without AD on level ground for shopping and up/ down steps with railing to enter/exit home 2) Improve hip flexion and ER ROM allowing him to place ankle on knee to sp/doff socks. 3) Lie flat on back with neutral hip and knee position without pain. 4) Rise from chair without UE push up to rise off toilet. 5) Walk 1 mile with cane for exercise. Coordination/Communication With Referral Source Treatment Plan/Direct Interventions Joint Mobilization,Manual Therapy,Neuromuscular Re-ed, Therapeutic Activities, Therapeutic Exercises Frequency/Duration 1-2 x per week for 8 weeks then prn for 4 weeks Patient Will Be Discharged From Therapy Completion of LTG(s),Skills Plateau,Independent w/HEP, Independently Progressing Evaluation Billing Untimed Code Treatment Minutes 40 Complexity Low Certification Information Initial Certification Date 09/27/21 Ending Certification Date 12/20/21
--- NOTE | 2021-10-11 13:28 | PT.OPEX ---
PT [place] Outpatient Eval PT [facility] Outpatient Eval Start: 09/27/21 08:56 Freq: Status: Active Protocol: Document 10/11/21 09:02 MATTHEW (Rec: 10/11/21 10:42 MBB [id number]) E-Signed By Teresita Mcdonald DPT Physical Therapy Outpatient Evaluation Insurance Information Recert Due Date 01/03/22 Insurance Name Medicare B Medical Diagnosis bilateral Hip OA Treating Diagnosis bilateral hip pain; impaired hip ROM; hip weakness Subjective Bilateral PAULA. Right knee buckling residual after surgery. Pain is very minimal. Was very painful getting in/ out of bed but has figured out how to do that so it's good now. Most of getting up is the upper body. Legs feel pretty weak often. Walking 10 times per day. Steps have been biggest challenge. Knee immobilizer is helping on steps. Assessment/Impression 71 yo who had bilateral PAULA on 10/04/21. Complications of right knee buckling post-op potentially due to nerve block complications or nerve injury during surgery. This is improving. He presents with severely limited hip ROM, especially flexion, lower extremity weakness, and impaired gait. He will benefit from skilled PT to address his limitations allowing him to progress to fully independent gait without limitations. Primary Functional Limitations walking; transfers; sleeping on back Plan of Care Physical Therapy Goals By 01/03/22 patient will... 1) Walk with normal gait mechanics without AD on level ground for community mobility. 2) Improve hip flexion and ER ROM allowing him to place ankle on knee to sp/doff socks. 3) Lie flat on back with neutral hip and knee position without pain. 4) Rise from chair without UE push up to rise off toilet. 5) Walk 1 mile with cane for exercise. 6) Ascend/descend steps independently with confidence. Treatment Plan/Direct Interventions Electrical Stimulation,Manual Therapy,Neuromuscular Re-ed, Therapeutic Activities, Therapeutic Exercises Frequency/Duration 1 x per week for 8 weeks then prn for 4 weeks Patient Will Be Discharged From Therapy Completion of LTG(s),Skills Plateau,Independent w/HEP, Independently Progressing Certification Information Initial Certification Date 09/27/21 Ending Certification Date 12/20/21 Provider Signature indicates agreement with plan of care and medical necessity.
== END 2022-04-19 14:34 | disposition home or self-care (01) ==
PROVIDERS: PCP Family Medicine; Visit Provider Orthopaedic Surgery
DX: M16.0 Bilateral primary osteoarthritis of hip (principal); Z51.89 Encounter for other specified aftercare
CPT/HCPCS: 97110; 97112; 97116; 97140; 97161; 97164; 97535

== ENCOUNTER 2024-12-28 13:00 | Outpatient (RCR) | payer MEDICARE, BC, SELFPAY | END 2025-01-17 16:40 | disposition home or self-care (01) | PROVIDERS: PCP Family Medicine; Visit Provider Family Medicine | DX: M54.2 Cervicalgia (principal); M54.89 Other dorsalgia; Z51.89 Encounter for other specified aftercare | CPT/HCPCS: 97110; 97140; 97161 ==